=== PATIENT | male | born 1980 | race Caucasian/White ===

== ENCOUNTER → 2017-05-22 | Outpatient (CLI) | payer OTHER ==
[2017-05-22 17:41] LABS: Basophils % (A) 0 %; Eosinophils # (A) 0.2 k/uL (0-0.7); Eosinophils % (A) 2 %; HCT 46.3 % (39.0-53.0); HGB 15.5 gm/dL (13.0-17.5); Lymphocytes # (A) 2.1 k/uL (1.0-4.8); Lymphocytes % (A) 30 %; MCH 32.1 pg (25.0-35.0); MCHC 33.5 g/dL (31.0-37.0); MCV 95.8 fL (80.0-100.0); Mean Platelet Volume 7.1; Monocytes # (A) 0.4 k/uL (0-1.0); Monocytes % (A) 6 %; Neutrophils # (A) 4.2 k/uL (1.3-7.7); Neutrophils % (A) 60 %; Platelet Count 175 k/uL (150-450); RBC 4.83 m/uL (4.30-5.90); RDW 14.3 % (11.5-15.5)
[2017-05-22 17:54] LABS: ALT 45 U/L (21-72); AST 28 U/L (17-59); Albumin 4.3 g/dL (3.5-5.0); Alkaline Phosphatase 65 U/L (38-126); Anion Gap 9 mmol/L; Blood Urea Nitrogen 18 mg/dL (9-20); Calcium 9.4 mg/dL (8.4-10.2); Carbon Dioxide 31 mmol/L (22-30); Chloride 103 mmol/L (98-107); Glucose 79 mg/dL (74-99); Potassium 4.4 mmol/L (3.5-5.1); Sodium 143 mmol/L (137-145); Total Bilirubin 0.1 mg/dL (0.2-1.3)
== END | disposition home or self-care (01) ==
LOC: LABWHC1 17:10
PROVIDERS: ATTEND Psychiatry & Neurology Neurology
DX: Z00.00 Encounter for general adult medical examination without abnormal findings (principal); Z79.899 Other long term (current) drug therapy
CPT/HCPCS: 36415; 80053; 85025

== ENCOUNTER → 2018-05-07 | Outpatient (CLI) | payer OTHER ==
[2018-05-07 11:06] LABS: HCT 49.5 % (39.0-53.0); HGB 15.8 gm/dL (13.0-17.5); MCH 30.1 pg (25.0-35.0); MCV 94.1 fL (80.0-100.0); Mean Platelet Volume 6.3; Platelet Count 205 k/uL (150-450); RBC 5.26 m/uL (4.30-5.90); WBC 5.1 k/uL (3.8-10.6)
[2018-05-07 17:54] LABS: Albumin 4.4 g/dL (3.80-4.90); Albumin/Globulin Ratio 2.32 (1.20-2.10); Anion Gap 6.6 mmol/L (4.00-12.00); Calcium 8.9 mg/dL (8.7-10.3); Carbon Dioxide 28.4 mmol/L (21.6-31.8); Globulin 1.9 g/dL (1.6-3.3); Potassium 4.2 mmol/L (3.5-5.5); Total Bilirubin 0.4 mg/dL (0.3-1.2); Total Protein 6.3 g/dL (6.2-8.2)
== END ==
LOC: LABWHC1 10:04
PROVIDERS: ATTEND Psychiatry & Neurology Neurology
DX: Z00.00 Encounter for general adult medical examination without abnormal findings (principal)
CPT/HCPCS: 36415; 80053; 85027

== ENCOUNTER 2020-06-30 10:23 | Day surgery (SDC) | payer OTHER ==
[2020-06-28 11:28] VITALS: BMI 28.1
[~2020-06-30 10:23] MED LIST: LACTATED RINGERS 1,000 ML IV SCH; LIDOCAINE 1% (10MG/ML) FOR IV START INTRADERMA PRN
[2020-06-30 11:05] VITALS: RESP 16; TEMP 97.6
[2020-06-30] MEDS ORDERED: LIDOCAINE 1% INJ 10MG/ML (20 ML MDV) ONE (11:53)
[2020-06-30] MEDS ORDERED: PROPOFOL 10 MG/ML 20 ML VIAL IV ONE (11:53)
--- NOTE | 2020-06-30 12:00 | P.PCN ---
Date of Procedure: 06/30/20 Procedure(s) Performed: BRIEF HISTORY: Patient is a 39-year-old, pleasant, white male scheduled for an upper endoscopy as a part of evaluation of long-standing history of GERD.. PROCEDURE PERFORMED: Esophagogastroduodenoscopy with biopsy. PREOPERATIVE DIAGNOSIS: Long-standing history of GERD. IV sedation per anesthesia. PROCEDURE: After informed consent was obtained, the patient was brought into the endoscopy unit. IV sedation was administered by Anesthesia under continuous monitoring. Initially the Olympus GIF-140 video endoscope was inserted into the mouth. Esophagus intubated without any difficulty. It was gradually advanced into the stomach and duodenum and carefully examined. The bulb and the second part of the duodenum appeared normal. The scope at this time was withdrawn to the stomach, adequately insufflated with air, and upon careful examination, mucosa of the antrum, body, cardia and the fundus appeared normal. The scope was then withdrawn into the esophagus. The GE junction was located at 38 cm from the incisors. There were 2 superficial EROSIONS at the GE junction consistent with LA grade B reflux esophagitis. The rest of the esophagus appeared normal and the patient tolerated the procedure well. IMPRESSION: 1. Linear erosions in the distal esophagus consistent with LA grade B reflux esophagitis. 2. Stomach and duodenum appeared normal. RECOMMENDATIONS: The findings of this examination were discussed with the patient as well as his family. He was advised to continue with Prilosec 20 mg daily and continue to follow antireflux measures..
[2020-06-30 12:18] VITALS: BP 116/72; PULSE 70
--- NOTE | 2020-07-07 20:08 | CDI ---
Date: 07.07.20 CDS/Radiator Cleaner Name: Iris Ruiz Phone: If any questions, call Jael Rojas Reservations Sales Agent at [phone] Patient Name: Jeff Barrera Admit Date 06.30.20 Discharge Date: 06.30.20 ATTENTION: The [facility] Coding Staff appreciate your assistance in clarifying documentation. Please respond to the clarification below the line at the bottom and electronically sign. The [facility] Coding staff will review the response and follow-up if needed. Please note: Queries are made part of the Legal Health Record. If you have any questions, please contact the Reservations Sales Agent. Dear Dr. Flores In order to code to the greatest specificity and for the greatest reimbursement I need the following information: In your Op note under procedure performed you have documented EGD w/Biopsy but I do not find where it is documented in the procedure or impression that a biopsy was done. Please clarify. Thank you for your kind consideration. MTDD
== END 2020-06-30 12:24 | disposition home or self-care (01) ==
LOC: ORWHC2ENDO 10:23
PROVIDERS: ATTEND Internal Medicine Gastroenterology
DX: K21.00 Gastro-esophageal reflux disease with esophagitis, without bleeding (principal); K22.10 Ulcer of esophagus without bleeding; Z79.899 Other long term (current) drug therapy
CPT/HCPCS: 43235; J2001; J2704

== ENCOUNTER → 2023-08-22 | Outpatient (CLI) | payer OTHER ==
[2023-08-22 14:27] LABS: Basophils # (A) 0.02 X 10*3/uL (0.00-0.10); Basophils % (A) 0.4 %; Eosinophils # (A) 0.19 X 10*3/uL (0.04-0.35); Eosinophils % (A) 3.7 %; HCT 44.5 % (39.6-50.0); HGB 15.2 g/dL (13.0-17.0); Lymphocytes # (A) 1.75 X 10*3/uL (0.90-5.00); MCH 31.2 pg (27.0-32.0); MCHC 34.2 g/dL (32.0-37.0); MCV 91.4 FL (80.0-97.0); Mean Platelet Volume 9.9 FL (9.5-12.2); Monocytes % (A) 7.8 %; NRBC Per 100 WBC 0 X 10*3/uL (0.00-0.01); Neutrophils # (A) 2.78 X 10*3/uL (1.80-7.70); Neutrophils % (A) 53.9 %; Platelet Count 209 X 10*3/uL (140-440); RBC 4.87 X 10*6/uL (4.40-5.60); RDW 12.6 % (11.5-14.5); WBC 5.15 X 10*3/uL (4.50-10.00)
[2023-08-22 16:15] LABS: ALT 49 U/L (10-49); AST 31 U/L (14-35); Albumin 4.4 g/dL (3.8-4.9); Albumin/Globulin Ratio 1.63 Ratio (1.60-3.17); Alkaline Phosphatase 58 U/L (41-126); BUN/Creat Ratio 14.18 Ratio (12.00-20.00); Blood Urea Nitrogen 15.6 mg/dL (9.0-27.0); Calcium 9.4 mg/dL (8.7-10.3); Carbon Dioxide 25.9 mmol/L (21.6-31.8); Chloride 104 mmol/L (96-109); Globulin 2.7 g/dL (1.6-3.3); Glucose 96 mg/dL (70-110); Potassium 4.1 mmol/L (3.5-5.5); Sodium 139 mmol/L (135-145); Total Bilirubin 0.3 mg/dL (0.3-1.2); Total Protein 7.1 g/dL (6.2-8.2)
== END | disposition home or self-care (01) ==
LOC: LABWHC1 11:39
PROVIDERS: ATTEND Psychiatry & Neurology Neurology
DX: T47.1X5A Adverse effect of other antacids and anti-gastric-secretion drugs, initial encounter (principal); T43.695A Adverse effect of other psychostimulants, initial encounter
CPT/HCPCS: 36415; 80053; 82306; 82607; 85025